=== PATIENT | male | born 1960 | race African-American/Black ===

== ENCOUNTER 2020-10-24 17:35 | Emergency (ER) | payer MEDICAID ==
[~2020-10-24] VITALS: Ht 180.3 cm; Wt 79.4 kg
[2020-10-24 18:42] VITALS: BP 112/77
== END 2020-10-24 19:17 | disposition home or self-care (01) ==
LOC: ER 17:45
DX: R20.2 Paresthesia of skin (principal); H53.8 Other visual disturbances; E11.9 Type 2 diabetes mellitus without complications; Z60.2 Problems related to living alone
CPT/HCPCS: 82962-TC

== ENCOUNTER 2021-12-06 08:39 | Inpatient (IN) | payer MEDICAID ==
[~2021-12-06] VITALS: Ht 180.3 cm; Wt 76.2 kg
--- NOTE | 2021-12-06 08:43 | NUR ---
TO ER BED 9, BIBS C/O SUDDEN ONSET CHEST PAIN, L SIDED FACIAL NUMBNESS 40 MINS AGO, RESOLVED JAVA SOFTWARE ENGINEER PT TIGIST C/O BLE NUMBNESS X 1 WEEK. AAOX4, BREATHING EVEN AND NON LABORED, CHANGED INTO A GOWN, HOOKED TO MONITOR, MD AT BEDSIDE
--- NOTE | 2021-12-06 08:53 | NUR ---
CALLED CODE STROKE
--- NOTE | 2021-12-06 08:55 | NUR ---
PT TAKEN TO CT VIA DRE WITH ACLS PROTOCOL
--- NOTE | 2021-12-06 08:55 | NUR ---
[facility] ACTIVATED
[2021-12-06] MEDS ORDERED: IOHEXOL-350 100 ML VIAL IV ONE (08:58)
--- NOTE | 2021-12-06 08:59 | NUR ---
CALLED [facility] TELE NEURO IS DR. JAYESH COSTA
--- NOTE | 2021-12-06 09:12 | NUR ---
TACKING MACHINE OPERATOR AT BEDSIDE FOR BLOOD DRAW
[2021-12-06 09:39] LABS: CALCIUM, SERUM 8.8 mg/dL (8.5-10.1); CARBON DIOXIDE 27 mmol/L (21-32); CHLORIDE 105 mmol/L (98-107); CREATININE 1.3 mg/dL (0.6-1.3); GLUCOSE 94 mg/dL (74-106); POTASSIUM 3.9 mmol/L (3.5-5.1); SODIUM SERUM 137 mmol/L (136-145); UREA NITROGEN, BLOOD 14 mg/dL (7-18)
[2021-12-06 09:42] LABS: BASOPHILS % (AUTO) 1.1 % (0.0-2.0); EOSINOPHILS % (AUTO) 6.4 % (0.0-6.0); HEMATOCRIT 39 % (39-51); HEMOGLOBIN 12.7 g/dL (13.5-17.5); LYMPHOCYTES # (AUTO) 1.1 K/uL (0.8-4.8); LYMPHOCYTES % (AUTO) 40.5 % (20.0-44.0); MEAN CORPUSCULAR HGB CONC 33 g/dl (31.0-36.0); MEAN CORPUSCULAR VOLUME 85 fL (80-96); MONOCYTES # (AUTO) 0.5 K/uL (0.1-1.30); NEUTROPHILS # (AUTO) 0.9 K/uL (1.8-8.9); PLATELET COUNT (AUTO) 188 K/uL (150-450); RED BLOOD CELL COUNT(AUTO) 4.59 MIL/uL (4.5-6.0); WHITE BLOOD COUNT (AUTO) 2.7 K/uL (4.3-11.0)
--- NOTE | 2021-12-06 09:44 | NUR ---
COVID SWAB DONE AND SENT TO LAB
--- NOTE | 2021-12-06 10:20 | NUR ---
SPOKE TO NORMAN CATERING SERVER OF [employer], PT CASE WILL BE SUBMITTED FOR CONCURRENT REVIEW
--- NOTE | 2021-12-06 10:46 | NUR ---
PANEL ON-CALL PAGED
--- NOTE | 2021-12-06 11:23 | NUR ---
SEEN BY GHISLAINE ARANA
--- NOTE | 2021-12-06 11:38 | NUR ---
GOT BED 326-1 RN DAVON
--- NOTE | 2021-12-06 11:59 | NUR ---
report given to LAKESHIA RIOS for JAYLON.
[2021-12-06 12:00] VITALS: BP 136/84
--- NOTE | 2021-12-06 12:20 | NUR ---
TRANSFERRED IN STABLE CONDITION
--- NOTE | 2021-12-06 12:20 | NUR ---
HYDROLOGY TECHNICIAN NOTE RECEIVED PATIENT VIA GURNEY FROM ER. PATIENT IS A/O X4. PATIENT IS BREATHING EVENLY AND NONLABORED ON ROOM AIR. NO SIGNS OF DISTRESS NOTED. PATIENT DENIES PAIN OR DISCOMFORT AT THIS TIME. PATIENT IS PLACED ON TELE MONITORING. PATIENT HAS NO WEAKNESS NOTED. PATIENTS VITALS UPON TRANSFER ARE BP 155/82 HR 62 RR 18 TEMP O2 SAT 100 PATIENT'S SKIN IS C/D/I. PATIENT HAS IV ACCESS TO RFA # 18 AND L HAND # 20, BOTH PATENT AND INTACT. PATIENT'S BELONGINGS ACCOUNTED TO FOR. PATIENT WAS ORIENTED TO THE ROOM AND HOW TO USED THE CALL LIGHT. SAFETY MEASURES IN PLACE BED LOW LOCKED AND CALL LIGHT WITHIN REACH. WILL CONTINUE TO MONITOR
[2021-12-06] MEDS ORDERED: ONDANSETRON HCL/PF 4 MG/2 ML VIAL IVP PRN (13:30)
[2021-12-06] MEDS ORDERED: MAGNESIUM HYDROXIDE 30 ML UDC PO PRN (13:30)
[2021-12-06] MEDS ORDERED: ZOLPIDEM TARTRATE 5 MG TABLET PO PRN (13:30)
[2021-12-06] MEDS ORDERED: ACETAMINOPHEN 325 MG TABLET PO PRN (13:30)
[2021-12-06] MEDS ORDERED: MAG HYDROX/AL HYDROX/SIMETH 30 ML UDC PO PRN (13:30)
[2021-12-06] MEDS ORDERED: Z GUARD REMEDY 4 OZ OINT TP PRN (13:30)
[2021-12-06] MEDS: ENOXAPARIN SODIUM 40 MG/0.4 ML DISP.SYRIN SQ SCH (13:31)
[2021-12-06] MEDS ORDERED: METOCLOPRAMIDE HCL 10 MG/2 ML VIAL IM ONE (14:00)
[2021-12-06] MEDS ORDERED: diphenhydrAMINE HCL 50 MG/ML VIAL IM ONE (14:00)
[2021-12-06 15:00] LABS: EOSINOPHILS % (MANUAL) 6 % (0-4); LYMPHOCYTES % (MANUAL) 41 % (16-48); MONOCYTES % (MANUAL) 20 % (0-11.0); NEUTROPHILS % (MANUAL) 33 (42-76)
[2021-12-06 16:00] VITALS: BP 124/63
--- NOTE | 2021-12-06 18:23 | NUR ---
REAL PROPERTY EVALUATOR CLOSING NOTE PATIENT IS RESTING IN BED. PATIENT IS A/O X4. PATIENT IS BREATHING EVENLY AND NONLABORED ON ROOM AIR. NO SIGNS OF DISTRESS NOTED. PATIENT DENIES PAIN OR DISCOMFORT AT THIS TIME. PATIENT IS PLACED ON TELE MONITORING. PATIENT HAS NO WEAKNESS NOTED. PATIENT HAS IV ACCESS TO RFA # 18 AND L HAND # 20, BOTH PATENT AND INTACT. ALL MEDICATIONS GIVEN ORDERED. SAFETY MEASURES IN PLACE BED LOW LOCKED AND CALL LIGHT WITHIN REACH. WILL ENDORSE TO ONCOMING SHIFT.
--- NOTE | 2021-12-06 19:15 | NUR ---
WIND FARM ENGINEER OPENING NOTES: RECEIVED PATIENT IN BED, AWAKE, A/O X4. NO S/S OF DISTRESS NOTED. NO COMPLAIN OF PAIN. CALL LIGHT WITHIN REACH. BED IN LOWEST AND LOCKED POSITION. ON TELE MONITOR SR65.
[2021-12-06 20:51] VITALS: BP 111/71
[2021-12-06] MEDS ORDERED: ATORVASTATIN 40 MG TABLET PO SCH (22:00)
[2021-12-07 00:38] VITALS: BP 147/59
[2021-12-07 04:32] VITALS: BP 122/63
[2021-12-07] MEDS ORDERED: PANTOPRAZOLE 40 MG TABLET.DR PO SCH (07:30)
--- NOTE | 2021-12-07 07:32 | NUR ---
MODEL ARTISTS' OPENING NOTES RECEIVED Pt RESTING IN BED. PT IS A/Ox4. Pt IS ON ROOM AIR AND TOLERATING WELL AT THIS TIME. NO SIGNS OF DISTRESS NOTICED AND NO COMPLAINTS OF PAIN AT THIS TIME. SAFETY MEASURES ARE IN PLACE: BED IC LOCKED AND IN LOWEST POSITION. SIDE RAILS UPx2, CALL LIGHT AND BED SIDE TABLE ARE WITHIN REACH. WILL CONTINUE TO MONITOR.
[2021-12-07 07:41] LABS: BASOPHILS % (AUTO) 0.7 % (0.0-2.0); EOSINOPHILS % (AUTO) 5.6 % (0.0-6.0); HEMATOCRIT 41 % (39-51); HEMOGLOBIN 13.6 g/dL (13.5-17.5); LYMPHOCYTES % (AUTO) 40.6 % (20.0-44.0); MEAN CORPUSCULAR HGB CONC 34 g/dl (31.0-36.0); MEAN CORPUSCULAR VOLUME 84 fL (80-96); MONOCYTES # (AUTO) 0.4 K/uL (0.1-1.30); MONOCYTES % (AUTO) 16.5 % (2.0-12.0); NEUTROPHILS # (AUTO) 0.9 K/uL (1.8-8.9); NEUTROPHILS % (AUTO) 36.6 % (43.0-81.0); PLATELET COUNT (AUTO) 204 K/uL (150-450); RED BLOOD CELL COUNT(AUTO) 4.81 MIL/uL (4.5-6.0); WHITE BLOOD COUNT (AUTO) 2.6 K/uL (4.3-11.0)
[2021-12-07 08:00] VITALS: BP 107/69
[2021-12-07 08:18] LABS: CALCIUM, SERUM 9.9 mg/dL (8.5-10.1); CREATININE 1.3 mg/dL (0.6-1.3); MAGNESIUM 2.3 mg/dL (1.8-2.4); POTASSIUM 4.1 mmol/L (3.5-5.1)
[2021-12-07] MEDS: ENOXAPARIN SODIUM 40 MG/0.4 ML DISP.SYRIN SQ SCH (08:33)
[2021-12-07] MEDS ORDERED: ASPIRIN 81 MG TAB.CHEW PO SCH (09:00)
[2021-12-07 11:11] LABS: LYMPHOCYTES % (MANUAL) 40 % (16-48); MONOCYTES % (MANUAL) 19 % (0-11.0); NEUTROPHILS % (MANUAL) 37 (42-76)
[2021-12-07 11:12] LABS: EOSINOPHILS % (MANUAL) 4 % (0-4)
[2021-12-07] MEDS ORDERED: ASPI-866 PO (15:15)
[2021-12-07] MEDS ORDERED: ATOR40TA PO (15:15)
[2021-12-07 16:00] VITALS: BP 108/72
--- NOTE | 2021-12-07 17:04 | NUR ---
RN NOTES Pt HAS BEEN DISCHARGED. HE IS A/Ox4 AND IS MEDICALLY STABLE AT THIS TIME. Pt IS ON ROOM AIR AND TOLERATING WELL. NO COMPLAINTS OF PAIN OR SIGNS OF DISTRESS AT THIS TIME. ALL NEEDS MET. IV ACCESS HAS BEEN REMOVED. ALL DISCHARGE INSTRUCTIONS HAVE BEEN EXPLAINED.
== END 2021-12-07 17:10 | disposition home or self-care (01) | DRG 47 ==
LOC: ER 08:41 → TELE 11:48 → MED 12-07 10:50
PROVIDERS: ADMIT Nurse Practitioner Family; ATTEND Nurse Practitioner Family
DX: G45.9 Transient cerebral ischemic attack, unspecified (principal); E11.9 Type 2 diabetes mellitus without complications; I10 Essential (primary) hypertension; F41.9 Anxiety disorder, unspecified; Z20.822 Contact with and (suspected) exposure to COVID-19; Z83.3 Family history of diabetes mellitus; K86.1 Other chronic pancreatitis
CPT/HCPCS: 36415; 70450-TC; 70496-TC; 70498-TC; 71045-TC; 80048-TC; 80061-TC; 82962-TC; 83735-TC; 84484-TC; 85025-TC; 85730-TC; 87081-TC; 92526; 92611-TC; 93307-TC; 97116-TC; 97530-TC; C9803; G0378; J1200; J1650; J2765; Q9967

== ENCOUNTER 2024-04-11 18:06 | Inpatient (IN) | payer MEDICAID ==
[~2024-04-11] VITALS: Ht 180.3 cm; Wt 76.2 kg
[~2024-04-11 18:06] MED LIST: ASPI-866 PO; ATOR40TA PO
[2024-04-11] MEDS ORDERED: KETOROLAC TROMETHAMINE 15 MG/ML VIAL ONE (18:58)
[2024-04-11] MEDS ORDERED: FAMOTIDINE/PF INJ 20 MG/2 ML VIAL IV ONE (18:58)
[2024-04-11] MEDS ORDERED: METOCLOPRAMIDE HCL 10 MG/2 ML VIAL ONE (18:58)
[2024-04-11] MEDS: KETOROLAC TROMETHAMINE 15 MG/ML VIAL IV ONE (19:00)
[2024-04-11] MEDS: METOCLOPRAMIDE HCL 10 MG/2 ML VIAL IV ONE (19:00)
[2024-04-11] MEDS: IV NS 0.9% 1,000 ML BAG IV ONE (19:00)
[2024-04-11] MEDS: FAMOTIDINE/PF INJ 20 MG/2 ML VIAL IV ONE (19:00)
[2024-04-11 19:18] LABS: BASOPHILS % (AUTO) 0.5 % (0.0-2.0); EOSINOPHILS # (AUTO) 0.2 K/uL (0.0-0.7); EOSINOPHILS % (AUTO) 3.3 % (0.0-6.0); HEMATOCRIT 45 % (39-51); HEMOGLOBIN 15.1 g/dL (13.5-17.5); LYMPHOCYTES # (AUTO) 1.2 K/uL (0.8-4.8); LYMPHOCYTES % (AUTO) 21.9 % (20.0-44.0); MEAN CORPUSCULAR HEMOGLOBIN 29 PG (26.0-33.0); MEAN CORPUSCULAR HGB CONC 34 g/dl (31.0-36.0); MEAN CORPUSCULAR VOLUME 86 fL (80-96); MONOCYTES # (AUTO) 0.7 K/uL (0.1-1.30); MONOCYTES % (AUTO) 13.2 % (2.0-12.0); NEUTROPHILS # (AUTO) 3.4 K/uL (1.8-8.9); NEUTROPHILS % (AUTO) 61.1 % (43.0-81.0); PLATELET COUNT (AUTO) 177 K/uL (150-450); RED BLOOD CELL COUNT(AUTO) 5.22 MIL/uL (4.5-6.0); RED CELL DISTRIBUTION WIDTH 13.7 % (11.5-15.0); WHITE BLOOD COUNT (AUTO) 5.6 K/uL (4.3-11.0)
[2024-04-11 19:32] LABS: CALCIUM, SERUM 9.3 mg/dL (8.5-10.1); CREATININE 1.2 mg/dL (0.6-1.3); POTASSIUM 4.3 mmol/L (3.5-5.1)
[2024-04-11 19:38] LABS: ALBUMIN 2.7 g/dL (3.4-5.0); BILIRUBIN,DIRECT 0.1 mg/dL (0.0-0.2); BILIRUBIN,TOTAL 0.5 mg/dL (0.2-1.0); TOTAL PROTEIN, SERUM 6.8 g/dL (6.4-8.2)
[2024-04-11] MEDS ORDERED: MORPHINE SULFATE INJ 4 MG/ML DISP.SYRIN ONE (20:22)
[2024-04-11] MEDS: MORPHINE SULFATE INJ 2 MG/ML DISP.SYRIN IV ONE (20:22)
[2024-04-11] MEDS: HYDROMORPHONE 1 MG/1 ML DISP.SYRIN IV ONE (21:18)
[2024-04-11] MEDS ORDERED: IV NS 0.9% 250 ML IV ONE (21:25)
[2024-04-11] MEDS ORDERED: IOHEXOL-300 100 ML VIAL IV ONE (21:25)
[2024-04-11] MEDS ORDERED: CT SWABBABLE VALVE TRANS SET 1 EA INFUS.SET MC ONE (21:25)
[2024-04-11 23:25] VITALS: BP 108/55; TEMP 98.6; O2SAT 96
[2024-04-12] VITALS: BP 112/58; TEMP 98.4; O2SAT 97
[2024-04-12] MEDS ORDERED: ACETAMINOPHEN 325 MG TABLET PO PRN
[2024-04-12] MEDS ORDERED: ZOLPIDEM TARTRATE 5 MG TABLET PO PRN
[2024-04-12] MEDS ORDERED: MAG HYDROX/AL HYDROX/SIMETH 30 ML UDC PO PRN
[2024-04-12] MEDS ORDERED: Z GUARD REMEDY 4 OZ OINT TP PRN
[2024-04-12] MEDS: IV NS 0.9% 1,000 ML IV PRN (00:24)
[2024-04-12] MEDS: ONDANSETRON HCL/PF 4 MG/2 ML VIAL IVP PRN (00:34)
[2024-04-12] MEDS: HYDROMORPHONE 1 MG/1 ML DISP.SYRIN IV PRN (03:27)
[2024-04-12 06:42] LABS: BASOPHILS % (AUTO) 0.2 % (0.0-2.0); EOSINOPHILS # (AUTO) 0.1 K/uL (0.0-0.7); EOSINOPHILS % (AUTO) 0.9 % (0.0-6.0); HEMATOCRIT 43 % (39-51); HEMOGLOBIN 14.3 g/dL (13.5-17.5); LYMPHOCYTES # (AUTO) 0.9 K/uL (0.8-4.8); LYMPHOCYTES % (AUTO) 14.5 % (20.0-44.0); MEAN CORPUSCULAR HEMOGLOBIN 29 PG (26.0-33.0); MEAN CORPUSCULAR HGB CONC 33 g/dl (31.0-36.0); MEAN CORPUSCULAR VOLUME 86 fL (80-96); MONOCYTES # (AUTO) 0.8 K/uL (0.1-1.30); MONOCYTES % (AUTO) 12.3 % (2.0-12.0); NEUTROPHILS # (AUTO) 4.5 K/uL (1.8-8.9); NEUTROPHILS % (AUTO) 72.1 % (43.0-81.0); PLATELET COUNT (AUTO) 173 K/uL (150-450); RED BLOOD CELL COUNT(AUTO) 5.02 MIL/uL (4.5-6.0); RED CELL DISTRIBUTION WIDTH 13.4 % (11.5-15.0); WHITE BLOOD COUNT (AUTO) 6.2 K/uL (4.3-11.0)
[2024-04-12 06:59] LABS: CALCIUM, SERUM 9.1 mg/dL (8.5-10.1); CREATININE 1.2 mg/dL (0.6-1.3); PHOSPHORUS 3.9 mg/dL (2.5-4.9); POTASSIUM 4.3 mmol/L (3.5-5.1)
[2024-04-12 07:20] LABS: THYROID STIMULATING HORMONE 1.675 uIU/mL (0.358-3.74)
[2024-04-12] MEDS ORDERED: LOSA25TA27 PO (07:41)
[2024-04-12] MEDS ORDERED: AMLO-213 PO (07:41)
[2024-04-12 08:00] VITALS: BP 111/70; TEMP 98.1; O2SAT 95
[2024-04-12] MEDS: ENOXAPARIN SODIUM 40 MG/0.4 ML DISP.SYRIN SQ SCH (08:09)
[2024-04-12] MEDS: PANTOPRAZOLE 40 MG VIAL IV SCH (08:10)
[2024-04-12] MEDS: DICYCLOMINE HCL 10 MG CAPSULE PO SCH (12:59)
[2024-04-12 16:00] VITALS: BP 127/59; TEMP 98.7; O2SAT 97
[2024-04-12] MEDS: DOCUSATE SODIUM 100 MG CAPSULE PO SCH (16:14)
[2024-04-12] MEDS: SENNOSIDES 8.6 MG TABLET PO SCH (21:26)
[2024-04-13] VITALS: BP 134/85; TEMP 98; O2SAT 97
[2024-04-13] MEDS: MAGNESIUM HYDROXIDE 30 ML UDC PO PRN
[2024-04-13 08:00] VITALS: BP 112/73; TEMP 97.5; O2SAT 97
[2024-04-13] MEDS ORDERED: HYDROCODONE/APAP 5/325MG TABLET PO PRN (09:00)
[2024-04-13] MEDS ORDERED: DICY10CA37 PO (10:56)
== END 2024-04-13 14:12 | disposition home or self-care (01) | DRG 282 ==
LOC: ER 18:14 → MEDSG1 23:16
PROVIDERS: ADMIT Nurse Practitioner Family; ATTEND Student in an Organized Health Care Education/Training Program
DX: K86.1 Other chronic pancreatitis (principal); E88.09 Other disorders of plasma-protein metabolism, not elsewhere classified; E86.0 Dehydration; K56.7 Ileus, unspecified; E78.5 Hyperlipidemia, unspecified; Z20.822 Contact with and (suspected) exposure to COVID-19; W34.00XS Accidental discharge from unspecified firearms or gun, sequela; I10 Essential (primary) hypertension; E11.9 Type 2 diabetes mellitus without complications; Z79.82 Long term (current) use of aspirin; Z79.899 Other long term (current) drug therapy; Z90.49 Acquired absence of other specified parts of digestive tract; K86.9 Disease of pancreas, unspecified
CPT/HCPCS: 36415; 80048-TC; 80076-TC; 82150-TC; 83690-TC; 83735-TC; 84100-TC; 84443-TC; 85025-TC; A4223; C9113; G0378; J1170; J1650; J1885; J2270; J2405; J2765; J3490; J7030; J7050; Q9967

== ENCOUNTER 2024-05-28 06:29 | Emergency (ER) | payer MEDICAID, OTHER ==
[~2024-05-28] VITALS: Ht 177.8 cm; Wt 76.7 kg
[~2024-05-28 06:29] MED LIST changes: +AMLO-213 PO; -ASPI-866 PO; -ATOR40TA PO; +DICY10CA37 PO; +LOSA25TA27 PO
[2024-05-28 07:48] LABS: BASOPHILS % (AUTO) 0.3 % (0.0-2.0); EOSINOPHILS % (AUTO) 1.1 % (0.0-6.0); HEMATOCRIT 50 % (39-51); HEMOGLOBIN 16.4 g/dL (13.5-17.5); LYMPHOCYTES # (AUTO) 0.9 K/uL (0.8-4.8); LYMPHOCYTES % (AUTO) 20.4 % (20.0-44.0); MEAN CORPUSCULAR HEMOGLOBIN 29 PG (26.0-33.0); MEAN CORPUSCULAR HGB CONC 33 g/dl (31.0-36.0); MEAN CORPUSCULAR VOLUME 90 fL (80-96); MONOCYTES # (AUTO) 0.8 K/uL (0.1-1.30); MONOCYTES % (AUTO) 18.8 % (2.0-12.0); NEUTROPHILS # (AUTO) 2.5 K/uL (1.8-8.9); NEUTROPHILS % (AUTO) 59.4 % (43.0-81.0); PLATELET COUNT (AUTO) 156 K/uL (150-450); RED BLOOD CELL COUNT(AUTO) 5.59 MIL/uL (4.5-6.0); WHITE BLOOD COUNT (AUTO) 4.3 K/uL (4.3-11.0)
[2024-05-28 07:58] LABS: CALCIUM, SERUM 8.7 mg/dL (8.5-10.1); CARBON DIOXIDE 26 mmol/L (21-32); CHLORIDE 107 mmol/L (98-107); CREATININE 1.3 mg/dL (0.6-1.3); GLUCOSE 98 mg/dL (74-106); POTASSIUM 4.5 mmol/L (3.5-5.1); SODIUM SERUM 141 mmol/L (136-145); UREA NITROGEN, BLOOD 15 mg/dL (7-18)
[2024-05-28 08:10] LABS: ALANINE AMINOTRANSFERASE 39 U/L (12-78); ALBUMIN 2.7 g/dL (3.4-5.0); ALKALINE PHOSPHATASE 59 U/L (46-116); ASPARTATE AMINOTRANSFERASE 23 U/L (15-37); BILIRUBIN,DIRECT 0.2 mg/dL (0.0-0.2); BILIRUBIN,TOTAL 0.8 mg/dL (0.2-1.0); NT-PRO BNP 27 pg/mL (0-125); TOTAL PROTEIN, SERUM 6.7 g/dL (6.4-8.2)
[2024-05-28 10:46] VITALS: BP 134/76; TEMP 98.3; O2SAT 100
[2024-05-28 11:36] LABS: ANISOCYTOSIS 1+; BAND % (MANUAL) 1 % (0.0-5.0); BASOPHILS % (MANUAL) 0 % (0.0-2.0); EOSINOPHILS % (MANUAL) 2 % (0-4); LYMPHOCYTES % (MANUAL) 17 % (16-48); MONOCYTES % (MANUAL) 15 % (0-11.0); NEUTROPHILS % (MANUAL) 65 (42-76); PLATELET ESTIMATE ADEQUATE
== END 2024-05-28 10:54 | disposition home or self-care (01) ==
LOC: ER 06:45
DX: M25.572 Pain in left ankle and joints of left foot (principal); M25.571 Pain in right ankle and joints of right foot; I10 Essential (primary) hypertension; Z86.79 Personal history of other diseases of the circulatory system; Z87.19 Personal history of other diseases of the digestive system; Z60.2 Problems related to living alone
CPT/HCPCS: 36415; 71045-TC; 80048-TC; 80076-TC; 83880; 84484-TC; 85025-TC; 93970-TC

== ENCOUNTER 2024-07-17 12:38 | Emergency (ER) | payer MEDICAID ==
[~2024-07-17] VITALS: Ht 177.8 cm; Wt 85.3 kg
[2024-07-17 15:04] LABS: BASOPHILS % (AUTO) 0.2 % (0.0-2.0); EOSINOPHILS % (AUTO) 0.4 % (0.0-6.0); HEMATOCRIT 52 % (39-51); HEMOGLOBIN 16.9 g/dL (13.5-17.5); LYMPHOCYTES # (AUTO) 0.4 K/uL (0.8-4.8); LYMPHOCYTES % (AUTO) 3.7 % (20.0-44.0); MEAN CORPUSCULAR HEMOGLOBIN 29 PG (26.0-33.0); MEAN CORPUSCULAR HGB CONC 33 g/dl (31.0-36.0); MEAN CORPUSCULAR VOLUME 89 fL (80-96); MONOCYTES # (AUTO) 0.9 K/uL (0.1-1.30); MONOCYTES % (AUTO) 8.4 % (2.0-12.0); NEUTROPHILS # (AUTO) 9.5 K/uL (1.8-8.9); NEUTROPHILS % (AUTO) 87.3 % (43.0-81.0); PLATELET COUNT (AUTO) 194 K/uL (150-450); RED BLOOD CELL COUNT(AUTO) 5.82 MIL/uL (4.5-6.0); RED CELL DISTRIBUTION WIDTH 13.9 % (11.5-15.0); WHITE BLOOD COUNT (AUTO) 10.9 K/uL (4.3-11.0)
[2024-07-17 15:24] LABS: INR 1.04 (0.91-1.10); PARTIAL THROMBOPLASTIN TIME 22.7 SEC (24.3-34.3)
[2024-07-17 15:26] LABS: CALCIUM, SERUM 8.9 mg/dL (8.5-10.1); CREATININE 1.3 mg/dL (0.6-1.3); POTASSIUM 4.7 mmol/L (3.5-5.1)
[2024-07-17 15:45] LABS: ALBUMIN 3.5 g/dL (3.4-5.0); BILIRUBIN,DIRECT 0.2 mg/dL (0.0-0.2)
[2024-07-17] MEDS ORDERED: MORPHINE SULFATE INJ 4 MG/ML DISP.SYRIN ONE ×2 (16:29→19:50)
[2024-07-17] MEDS: MORPHINE SULFATE INJ 2 MG/ML DISP.SYRIN IV ONE ×2 (16:30→20:15)
[2024-07-17] MEDS ORDERED: CT SWABBABLE VALVE TRANS SET 1 EA INFUS.SET MC ONE (16:34)
[2024-07-17] MEDS ORDERED: IV NS 0.9% 250 ML IV ONE (16:34)
[2024-07-17] MEDS ORDERED: IOHEXOL-300 100 ML VIAL IV ONE (16:34)
[2024-07-17] MEDS: IV NS 0.9% 1,000 ML BAG IV ONE (17:00)
[2024-07-17] MEDS ORDERED: TEST200V3 IM (17:35)
[2024-07-17 18:41] VITALS: BP 131/79; TEMP 98.1; O2SAT 98
== END 2024-07-17 22:38 | disposition short-term general hospital (02) ==
LOC: ER 12:38
DX: K85.90 Acute pancreatitis without necrosis or infection, unspecified (principal); R10.84 Generalized abdominal pain; I10 Essential (primary) hypertension; Z20.822 Contact with and (suspected) exposure to COVID-19; Z79.899 Other long term (current) drug therapy; Z60.2 Problems related to living alone
CPT/HCPCS: 99285; 96374; 96361; 96376; 74177; 85025; 80048; 83690; 80076; 36415; 85730; 87426; 80320; J2270 ×2; J7030; J7050; J7040; Q9967; G0480

== ENCOUNTER 2025-04-01 22:15 | Emergency (ER) | payer MEDICARE, OTHER ==
[~2025-04-01] VITALS: Ht 175.3 cm; Wt 81.6 kg
[~2025-04-01 22:15] MED LIST changes: -DICY10CA37 PO; +TEST200V3 IM
[2025-04-01] MEDS ORDERED: ACETAMINOPHEN ES 500 MG TABLET PO ONE (23:30)
[2025-04-01] MEDS ORDERED: FAMOTIDINE (20 MG) 20 MG TABLET ONE (23:47)
[2025-04-01] MEDS ORDERED: NAPROXEN 250 MG TABLET ONE (23:47)
[2025-04-01] MEDS: FAMOTIDINE (20 MG) 20 MG TABLET PO ONE (23:51)
[2025-04-01] MEDS: NAPROXEN 250 MG TABLET PO ONE (23:52)
[2025-04-01 23:54] LABS: BASOPHILS % (AUTO) 1.1 % (0.0-2.0); EOSINOPHILS # (AUTO) 0.2 K/uL (0.0-0.7); EOSINOPHILS % (AUTO) 5.9 % (0.0-6.0); HEMATOCRIT 50 % (39-51); HEMOGLOBIN 16.4 g/dL (13.5-17.5); MEAN CORPUSCULAR HEMOGLOBIN 29 PG (26.0-33.0); MEAN CORPUSCULAR HGB CONC 33 g/dl (31.0-36.0); MEAN CORPUSCULAR VOLUME 88 fL (80-96); MONOCYTES # (AUTO) 0.5 K/uL (0.1-1.30); MONOCYTES % (AUTO) 13.9 % (2.0-12.0); NEUTROPHILS # (AUTO) 2.1 K/uL (1.8-8.9); NEUTROPHILS % (AUTO) 54.1 % (43.0-81.0); PLATELET COUNT (AUTO) 220 K/uL (150-450); RED BLOOD CELL COUNT(AUTO) 5.75 MIL/uL (4.5-6.0); RED CELL DISTRIBUTION WIDTH 14.7 % (11.5-15.0); WHITE BLOOD COUNT (AUTO) 3.9 K/uL (4.3-11.0)
[2025-04-01 23:57] LABS: CALCIUM, SERUM 8.8 mg/dL (8.5-10.1); CARBON DIOXIDE 27 mmol/L (21-32); CHLORIDE 106 mmol/L (98-107); CREATININE 1.2 mg/dL (0.6-1.3); GLUCOSE 176 mg/dL (74-106); POTASSIUM 3.9 mmol/L (3.5-5.1); SODIUM SERUM 140 mmol/L (136-145); UREA NITROGEN, BLOOD 14 mg/dL (7-18)
[2025-04-02] MEDS ORDERED: IBUP-1490 PO (03:08)
[2025-04-02 03:27] VITALS: BP 115/74; TEMP 98.4; O2SAT 98
== END 2025-04-02 03:27 | disposition home or self-care (01) ==
LOC: ER 22:28
DX: R07.89 Other chest pain (principal); R51.9 Headache, unspecified; R10.13 Epigastric pain; I10 Essential (primary) hypertension; Z79.899 Other long term (current) drug therapy; Z60.2 Problems related to living alone
CPT/HCPCS: 36415; 71045-TC; 80048-TC; 83690-TC; 84484-TC; 85025-TC